=== PATIENT | male | born 1970 | race Caucasian/White ===

== ENCOUNTER 2019-08-30 09:57 | Emergency (ER) | payer BC ==
[2019-08-30] MEDS ORDERED: TETRACAINE HCL 0.5% 4ML OPTH ONE (10:38)
[2019-08-30] MEDS ORDERED: TETANUS & DIPHTHERIA TOX,ADULT 0.5 ML VIAL ONE (10:39)
[2019-08-30] MEDS ORDERED: FLUORESCEIN SODIUM 1 MG/WRAP ONE (10:39)
--- NOTE | 2019-08-30 11:14 | ER ---
Nurse's Notes [facility] Name: Georgi Roblero Age: 48 yrs Sex: Male : 1970 Arrival Date: 08/30/2019 Time: 09:59 Bed 19 Private MD: Diagnosis: Injury of conjunctiva and corneal abrasion without foreign body, left eye Presentation: 08/30 10:10 Presenting complaint: Patient states: "I feel like I scratched my eye or there is ss something in there." c/o L eye irritation x 2 days. Transition of care: patient was not received from another setting of care. Onset of symptoms was August 28, 2019. Risk Assessment: Do you want to hurt yourself or someone else? Patient reports no desire to harm self or others. Initial Sepsis Screen: Does the patient meet any 2 criteria? No. Patient's initial sepsis screen is negative. Does the patient have a suspected source of infection? No. Patient's initial sepsis screen is negative. Care prior to arrival: None. 10:10 Method Of Arrival: Ambulatory ss 10:10 Acuity: CHIARA 4 ss Historical: - Allergies: 10:07 NKDA; tw2 - Home Meds: 10:07 None [Active]; tw2 - PMHx: 10:07 None; tw2 - PSHx: 10:07 right hand; tw2 - Immunization history:: Adult Immunizations. - Coronavirus screen:: The patient has NOT traveled to [place] in the past 14 days. - Social history:: Smoking status: . - Ebola Screening: : Patient denies travel to an Ebola-affected area in the 21 days before illness onset. Screenin:02 Abuse screen: Denies threats or abuse. Nutritional screening: No deficits noted. tw2 Tuberculosis screening: No symptoms or risk factors identified. Fall Risk None identified. Assessment: 10:00 General: Appears in no apparent distress. Behavior is calm, cooperative, appropriate tw2 for age. Pain: Complains of pain in left eye. Neuro: Level of Consciousness is awake, alert, obeys commands. Cardiovascular: Patient's skin is warm and dry. Respiratory: Airway is patent Respiratory effort is even, unlabored, Respiratory pattern is regular, symmetrical. GI: No signs and/or symptoms were reported involving the gastrointestinal system. EENT: Reports pain in left eye. 10:13 Reassessment: provider at bedside at this time. tw2 11:11 Reassessment: provider at bedside at this time. tw2 11:22 Reassessment: Patient appears in no apparent distress at this time. No changes from tw2 previously documented assessment. Vital Signs: 10:09 BP 144 / 101; Pulse 78; Resp 15; Temp 97.3(TE); Pulse Ox 99% on R/A; Weight 97.52 kg; ss Height 5 ft. 11 in. (180.34 cm); Pain 2/10; 11:05 BP 119 / 89; Pulse 77; Resp 17; Pulse Ox 99% on R/A; tw2 10:09 Body Mass Index 29.99 (97.52 kg, 180.34 cm) ss Visual Acuity: 11:05 Left Eye Visual acuity 20/50, ; Right Eye Visual acuity 20/30, ; Both Eyes Visual tw2 acuity 20/30; Without Lenses; ED Course: 09:59 Patient arrived in ED. rg4 10:02 Sendy Parson RN is Primary Nurse. tw2 10:06 Arm band placed on. tw2 10:07 Bed in low position. Call light in reach. tw2 10:09 Omi De La Paz NP is PHCP. pm1 10:09 Aguilar Eubanks MD is Attending Physician. pm1 10:11 Triage completed. ss 11:22 No provider procedures requiring assistance completed. Patient did not have IV access tw2 during this emergency room visit. Administered Medications: 11:00 Drug: Tetanus-Diphtheria Toxoid Adult 0.5 ml {Pvc Monitor: [employer]. Exp: 06/13/2021. Lot #: [id number]. } Route: IM; Site: right deltoid; 11:05 Follow up: Response: No adverse reaction tw2 11:04 Drug: Tetracaine Drops 0.5 % 1 drops Route: Ophthalmic; Site: left eye; tw2 11:21 Not Given (not available from pharmacy): ERYTHromycin Ointment 1 application Ophthalmic tw2 once Outcome: 11:13 Discharge ordered by . pm1 11:22 Discharged to home ambulatory. tw2 11:22 Condition: stable 11:22 Discharge instructions given to patient, Instructed on discharge instructions, follow up and referral plans. medication usage, Demonstrated understanding of instructions, follow-up care, medications, Prescriptions given X 1. 11:23 Patient left the ED. tw2 Signatures: Cathy Uribe, RN RN ss Omi De La Paz, SPRINKLER INSPECTOR SPRINKLER INSPECTOR pm1 Sendy Parson RN RN tw2 Jayla Soto rg4
--- NOTE | 2019-08-30 11:15 | EDPHYS ---
Physician Documentation [facility] Name: Georgi Roblero Age: 48 yrs Sex: Male : 1970 Arrival Date: 08/30/2019 Time: 09:59 Bed 19 Private MD: ED Physician Aguilar Eubanks HPI: 08/30 10:36 This 48 yrs old Male presents to ER via Ambulatory with complaints of Left pm1 Eye Problem. 10:36 to the left eye, caused by possibly metal debris from his coworker who was grinding pm1 metal. Onset: The symptoms/episode began/occurred 2 day(s) ago. Duration: the symptoms pain to left eye upper left corner occasionally. Aggravated by nothing. Alleviated by redness of eye, using Visine. Associated signs and symptoms: Pertinent negatives: fever, headache. Patient does not wear contacts. Severity of symptoms: in the emergency department the symptoms are unchanged. The patient has not experienced similar symptoms in the past. It is unknown whether or not the patient has recently seen a physician. Historical: - Allergies: 10:07 NKDA; tw2 - Home Meds: 10:07 None [Active]; tw2 - PMHx: 10:07 None; tw2 - PSHx: 10:07 right hand; tw2 - Immunization history:: Adult Immunizations. - Coronavirus screen:: The patient has NOT traveled to [place] in the past 14 days. - Social history:: Smoking status: . - Ebola Screening: : Patient denies travel to an Ebola-affected area in the 21 days before illness onset. ROS: 10:36 Constitutional: Negative for fever, chills, and weight loss. pm1 10:36 ENT: Negative for injury, pain, and discharge, Cardiovascular: Negative for chest pain, palpitations, and edema, Respiratory: Negative for shortness of breath, cough, wheezing, and pleuritic chest pain. 10:36 Neuro: Negative for headache, weakness, numbness, tingling, and seizure. 10:36 Eyes: Positive for foreign body sensation, pain, redness, Negative for blurry vision, visual disturbance. 10:36 All other systems are negative. Exam: 11:15 Visual Acuity: I have reviewed the nursing documentation. pm1 11:15 Constitutional: This is a well developed, well nourished patient who is awake, alert, and in no acute distress. Head/Face: Normocephalic, atraumatic. 11:15 Eyes: Periorbital structures: appear normal, Pupils: no acute changes, Extraocular movements: no acute changes, Conjunctiva: normal, no exudate, no injection, no subconjunctival hemorrhage Corneas: abrasion, that is small, on the left, at 3 o'clock, foreign body, is not appreciated, on the left, a fluorescein strip employed to appreciate the findings, Sclera: no appreciated abnormality. Vital Signs: 10:09 BP 144 / 101; Pulse 78; Resp 15; Temp 97.3(TE); Pulse Ox 99% on R/A; Weight 97.52 kg; ss Height 5 ft. 11 in. (180.34 cm); Pain 2/10; 11:05 BP 119 / 89; Pulse 77; Resp 17; Pulse Ox 99% on R/A; tw2 10:09 Body Mass Index 29.99 (97.52 kg, 180.34 cm) Visual Acuity: 11:05 Left Eye Visual acuity 20/50, ; Right Eye Visual acuity 20/30, ; Both Eyes Visual tw2 acuity 20/30; Without Lenses; MDM: 10:10 Patient medically screened. [facility] 11:08 Data reviewed: vital signs. Data interpreted: Pulse oximetry: on room air is 99 %. pm1 Interpretation: normal. Counseling: I had a detailed discussion with the patient and/or guardian regarding: the historical points, exam findings, and any diagnostic results supporting the discharge/admit diagnosis, the need for outpatient follow up, an opthalmologist, to return to the emergency department if symptoms worsen or persist or if there are any questions or concerns that arise at home. 08/30 10:16 Order name: Visual Acuity; Complete Time: 11:03 pm1 08/30 10:16 Order name: Eye Tray; Complete Time: 10:40 pm1 08/30 10:16 Order name: Fluoresene Opth strip; Complete Time: 10:40 pm1 Administered Medications: 11:00 Drug: Tetanus-Diphtheria Toxoid Adult 0.5 ml {Ops Analyst: [employer]. Exp: tw06/13/2021. Lot #: [id number]. } Route: IM; Site: right deltoid; 11:05 Follow up: Response: No adverse reaction tw2 11:04 Drug: Tetracaine Drops 0.5 % 1 drops Route: Ophthalmic; Site: left eye; tw2 11:21 Not Given (not available from pharmacy): ERYTHromycin Ointment 1 application Ophthalmic tw2 once Disposition: 08/30/19 11:13 Discharged to Home. Impression: Injury of conjunctiva and corneal abrasion without foreign body, left eye. - Condition is Stable. - Discharge Instructions: Corneal Abrasion. - Prescriptions for Erythromycin 5 mg/gram (0.5 %) Ophthalmic Ointment - apply 1 ribbon by OPHTHALMIC route every 8 hours for 7 days; 1 tube. - Medication Reconciliation Form, Thank You Letter, Antibiotic Education, Prescription Opioid Use, Work release form form. - Follow up: Emergency Department; When: As needed; Reason: Worsening of condition. Follow up: Private Physician; When: 2 - 3 days; Reason: Recheck today's complaints, Continuance of care, Re-evaluation by your physician. - Problem is new. - Symptoms have improved. Addendum: 09/01/2019 07:52 Co-signature as Attending Physician, Aguilar Eubanks MD I agree with the assessment and c newby plan of care. Signatures: Aguilar Eubanks MD MD cha Marinas, Patrick, PHILANTHROPY OFFICER PHILANTHROPY OFFICER pm1 Sendy Parson RN RN tw2 Corrections: (The following items were deleted from the chart) 08/30 11:23 11:13 08/30/2019 11:13 Discharged to Home. Impression: Injury of conjunctiva and tw2 corneal abrasion without foreign body, left eye. Condition is Stable. Forms are Work release form, Medication Reconciliation Form, Thank You Letter, Antibiotic Education, Prescription Opioid Use. Follow up: Emergency Department; When: As needed; Reason: Worsening of condition. Follow up: Private Physician; When: 2 - 3 days; Reason: Recheck today's complaints, Continuance of care, Re-evaluation by your physician. Problem is new. Symptoms have improved. pm1
[2019-08-30 11:31] VITALS: O2SAT 99
[2019-08-30 11:34] VITALS: BP 119/89
[2019-08-30 11:41] VITALS: TEMP 97.8
== END 2019-08-30 11:23 | disposition home or self-care (01) ==
LOC: ER 09:57
DX: S05.02XA Injury of conjunctiva and corneal abrasion without foreign body, left eye, initial encounter (principal); X58.XXXA Exposure to other specified factors, initial encounter; Y93.89 Activity, other specified; Y92.89 Other specified places as the place of occurrence of the external cause; Y99.0 Civilian activity done for income or pay; Z23 Encounter for immunization
CPT/HCPCS: 90471; 90714; 99283

== ENCOUNTER 2020-05-08 02:16 | Emergency (ER) | payer BC ==
--- OUTSIDE RECORDS SUMMARY | 2020-05-08 02:18 | XMS REPORT | Summary of Care ---
:1970 Author Organization [facility] Address [address] [place] [id number] Care Team Providers Name Role Phone Unavailable Primary Care Provider Unavailable Encounter Details Date Type Department Care Team Description 01/30/2020 Letter (Out) [facility] Family Medicine - Lab, Pcp Co tomasa Cedeno [address] [place] [address] [place] [address] Allergies Not on Filedocumented as of this encounter (statuses as of 02/09/2020) Medications Not on filedocumented as of this encounter (statuses as of 02/09/2020) Active Problems Not on filedocumented as of this encounter (statuses as of 02/09/2020) Social History Tobacco Use Types Packs/Day Years Used Date Never Assessed Sex Assigned at Date Recorded Not on file Job Start Date Occupation Industry Not on file Not on file Not on file Travel History Travel Start Travel End No recent travel history available. documented as of this encounter Last Filed Vital Signs Not on filedocumented in this encounter Plan of Treatment Health Maintenance Due Date Last Done Comments DTaP,Tdap,and Td Vaccines (1 - 11/27/1979 Tdap) Depression Screening 1980 COLONOSCOPY 2018 Zoster Recombinant Vaccine 2018 (SHINGRIX) (1 of 2) INFLUENZA VACCINE (#1) 2020 PNEUMOCOCCAL 0-64 YEARS COMBINED Aged Out No longer eligible based on SERIES patient's age to complete this topic documented as of this encounter Results Not on filedocumented in this encounter Additional Health Concerns Infection Onset Date Last Indicated Resolved Time COVID-19 Confirmed 01/28/2020 01/28/2020 documented as of this encounter Insurance Payer Benefit Plan Subscriber ID Effective Dates Phone Address Type / Group [employer] [place] [id number] 2018-Ag [phone] [address] PPO/POS [place] - OUT OF t [id number] [place] [address] documented as of this encounter
--- OUTSIDE RECORDS SUMMARY | 2020-05-08 02:18 | XMS REPORT | Continuity of Care Document ---
:1970 Author Organization [facility] t Address [address] [place] [address] Care Team Providers Name Role Phone Garry Hall MD Attending Clinician Lab, Melissa Attending Clinician Unavailable Problems This patient has no known problems. Allergies, Adverse Reactions, Alerts This patient has no known allergies or adverse reactions. Medications This patient has no known medications. Procedures This patient has no known procedures. Encounters Start End Encounter Admission Attending Care Care Encounter Source Date/Time Date/Time Type Type Clinicians Facility Department ID 2020-01-30 2020-01-30 Telephone SONIDO Hall [id number] 00:00:00 00:00:00 Garry SINGH [id number] [facility] [id number] 2020-01-30 2020-01-30 Letter Lab, Pcp [facility] [id number] 00:00:00 00:00:00 (Out) [facility] [id number] [facility] [id number] [facility] [phone] [address] Results This patient has no known results.
[2020-05-08] MEDS ORDERED: FLUORESCEIN SODIUM 1 MG/WRAP ONE (02:46)
[2020-05-08] MEDS ORDERED: TETRACAINE HCL 0.5% 4ML OPTH ONE (02:46)
--- NOTE | 2020-05-08 03:33 | ER ---
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 Coronavirus screen: Client denies travel out of the [place] in the last 14 days. At this time, the client does not indicate any symptoms associated with coronavirus-19. Ebola Screen: Patient negative for fever greater than or equal to 101.5 degrees Fahrenheit, and additional compatible Ebola Virus Disease symptoms Patient denies exposure to infectious person. Patient denies travel to an Ebola-affected area in the 21 days before illness onset. No symptoms or risks identified at this time. Initial Sepsis Screen: Does the patient meet any 2 criteria? No. Patient's initial sepsis screen is negative. Does the patient have a suspected source of infection? No. Patient's initial sepsis screen is negative. Risk Assessment: Do you want to hurt yourself or someone else? Patient reports no desire to harm self or others. Onset of symptoms was May 08, 2020. Care prior to arrival: None. Mechanism of Injury: No Mechanism of Injury. Transition of care: patient was not received from another setting of care. 02:34 Method Of Arrival: Ambulatory sg 02:34 Acuity: CHIARA 4 sg Historical: - Allergies: 02:37 NKDA; sg - Home Meds: 02:37 None [Active]; sg - PMHx: 02:37 None; sg - PSHx: 02:37 right hand; left eye (mesh work); sg - Immunization history:: Adult Immunizations up to date. - Social history:: Smoking status: Patient denies any tobacco usage or history of. - Family history:: not pertinent. Screenin:45 Abuse screen: Denies threats or abuse. Denies injuries from another. Nutritional wh screening: No deficits noted. Tuberculosis screening: No symptoms or risk factors identified. Fall Risk None identified. Assessment: 02:45 General: Appears in no apparent distress. Behavior is calm, cooperative, appropriate for age. Pain: Complains of pain in left eye. Neuro: Level of Consciousness is awake, alert, obeys commands, Oriented to person, place, time, situation, Appropriate for age. Cardiovascular: Capillary refill < 3 seconds. Respiratory: Airway is patent Respiratory effort is even, unlabored, Respiratory pattern is regular, symmetrical. GI: Abdomen is flat, non-distended. : No signs and/or symptoms were reported regarding the genitourinary system. EENT: Eyes clear. Derm: Skin is intact, is healthy with good turgor, Skin is pink, warm \T\ dry. normal. Musculoskeletal: Circulation, motion, and sensation intact. 03:45 Reassessment: Patient appears in no apparent distress at this time. No changes from previously documented assessment. Patient and/or family updated on plan of care and expected duration. Pain level reassessed. Patient is alert, oriented x 3, equal unlabored respirations, skin warm/dry/pink. Vital Signs: 02:34 BP 164 / 72; Pulse 87; Resp 18 S; Temp 98.2; Pulse Ox 100% on R/A; Weight 99.79 kg; Height 5 ft. 10 in. (177.80 cm); Pain 4/10; 03:30 BP 143 / 94; Pulse 66; Resp 18; Pulse Ox 98% on R/A; wh 02:34 Body Mass Index 31.57 (99.79 kg, 177.80 cm) ED Course: 02:17 Patient arrived in ED. ag3 02:29 gAuilar Eubanks MD is Attending Physician. myesha 02:34 Arm band placed on. sg 02:35 Luis F Gurrola is Primary Nurse. 02:36 Triage completed. 02:45 Patient has correct armband on for positive identification. Bed in low position. Call light in reach. Side rails up X 1. Pulse ox on. NIBP on. 03:05 Assist provider with eye exam of left eye. using fluorescein stain, Performed by Aguilar Eubanks MD Patient tolerated well. Patient did not have IV access during this emergency room visit. 03:30 Iraj Guerra MD is Referral Physician. myesha Administered Medications: 03:31 Not Given (Physician Discretion): Garamycin Ointment 0.3 % 0.5 inches Ophthalmic once; Left Eye 03:53 Drug: ERYTHromycin Ointment 1 application Route: Ophthalmic; Site: left eye; 03:58 Follow up: Response: No adverse reaction 03:53 Drug: Donora (7.5 mg-325 mg) 1 tabs Route: PO; 03:58 Follow up: Response: No adverse reaction; Pain is decreased; RASS: Alert and Calm (0) Outcome: 03:32 Discharge ordered by MD. brunner 03:55 Discharged to home ambulatory. 03:55 Condition: stable 03:55 Discharge instructions given to patient, Instructed on discharge instructions, follow up and referral plans. POC Demonstrated understanding of instructions, follow-up care, POC 03:59 Patient left the ED. Signatures: Neptali Mascorro, JOSEPH RN Aguilar Perez MD MD cha Habalo, Luis F Natalia Vanegas ag3
--- NOTE | 2020-05-08 03:33 | EDPHYS ---
[facility] Name: Georgi Roblero Age: 49 yrs Sex: Male : 1970 Arrival Date: 05/08/2020 Time: 02:17 Bed 18 Private MD: ED Physician Aguilar Eubanks HPI: 05/08 03:21 This 49 yrs old Male presents to ER via Ambulatory with complaints of Eye myesha Problem. 03:21 The patient sustained a scratch, to the left eye. Onset: The symptoms/episode myesha began/occurred 2 day(s) ago. Duration: the symptoms are continuous. Aggravated by blinking, closing eye, Alleviated by covering eye, lying down. Associated signs and symptoms: Pertinent positives: headache. Patient wears glasses. Severity of symptoms: At their worst the symptoms were mild in the emergency department the symptoms are unchanged. The patient has not experienced similar symptoms in the past. Historical: - Allergies: 02:37 NKDA; sg - Home Meds: 02:37 None [Active]; sg - PMHx: 02:37 None; sg - PSHx: 02:37 right hand; left eye (mesh work); sg - Immunization history:: Adult Immunizations up to date. - Social history:: Smoking status: Patient denies any tobacco usage or history of. - Family history:: not pertinent. ROS: 03:21 Constitutional: Negative for fever, chills, and weight loss, ENT: Negative for injury, myesha pain, and discharge, Neck: Negative for injury, pain, and swelling, Cardiovascular: Negative for chest pain, palpitations, and edema, Respiratory: Negative for shortness of breath, cough, wheezing, and pleuritic chest pain, Abdomen/GI: Negative for abdominal pain, nausea, vomiting, diarrhea, and constipation, Back: Negative for injury and pain, : Negative for injury, bleeding, discharge, and swelling, MS/Extremity: Negative for injury and deformity, Skin: Negative for injury, rash, and discoloration, Neuro: Negative for headache, weakness, numbness, tingling, and seizure, Psych: Negative for depression, anxiety, suicide ideation, homicidal ideation, and hallucinations, Allergy/Immunology: Negative for hives, rash, and allergies, Endocrine: Negative for neck swelling, polydipsia, polyuria, polyphagia, and marked weight changes, Hematologic/Lymphatic: Negative for swollen nodes, abnormal bleeding, and unusual bruising. 03:21 Eyes: Positive for pain, redness, vision loss. Exam: 03:21 Constitutional: This is a well developed, well nourished patient who is awake, alert, myesha and in no acute distress. Head/Face: Normocephalic, atraumatic. ENT: Nares patent. No nasal discharge, no septal abnormalities noted. Tympanic membranes are normal and external auditory canals are clear. Oropharynx with no redness, swelling, or masses, exudates, or evidence of obstruction, uvula midline. Mucous membranes moist. Neck: Trachea midline, no thyromegaly or masses palpated, and no cervical lymphadenopathy. Supple, full range of motion without nuchal rigidity, or vertebral point tenderness. No Meningismus. Chest/axilla: Normal chest wall appearance and motion. Nontender with no deformity. No lesions are appreciated. Cardiovascular: Regular rate and rhythm with a normal S1 and S2. No gallops, murmurs, or rubs. Normal PMI, no JVD. No pulse deficits. Respiratory: Lungs have equal breath sounds bilaterally, clear to auscultation and percussion. No rales, rhonchi or wheezes noted. No increased work of breathing, no retractions or nasal flaring. Abdomen/GI: Soft, non-tender, with normal bowel sounds. No distension or tympany. No guarding or rebound. No evidence of tenderness throughout. Back: No spinal tenderness. No costovertebral tenderness. Full range of motion. Male : Normal genitalia with no discharge or lesions. Skin: Warm, dry with normal turgor. Normal color with no rashes, no lesions, and no evidence of cellulitis. MS/ Extremity: Pulses equal, no cyanosis. Neurovascular intact. Full, normal range of motion. Neuro: Awake and alert, GCS 15, oriented to person, place, time, and situation. Cranial nerves II-XII grossly intact. Motor strength 5/5 in all extremities. Sensory grossly intact. Cerebellar exam normal. Normal gait. Psych: Awake, alert, with orientation to person, place and time. Behavior, mood, and affect are within normal limits. 03:21 Eyes: Periorbital structures: appear normal, Pupils: equal, round, and reactive to light and accomodation, Extraocular movements: no acute changes, Conjunctiva: normal, Corneas: abrasion, that is small, on the left, at 3 o'clock, Sclera: no appreciated abnormality, Anterior chamber: normal, Lids and lashes: appear normal, funduscopic exam reveals no obvious abnormalities, Visual prado: are intact, Nystagmus: is not appreciated, Intraocular pressure: left eye = 29mmHg, 29/31. Vital Signs: 02:34 BP 164 / 72; Pulse 87; Resp 18 S; Temp 98.2; Pulse Ox 100% on R/A; Weight 99.79 kg; sg Height 5 ft. 10 in. (177.80 cm); Pain 4/10; 03:30 BP 143 / 94; Pulse 66; Resp 18; Pulse Ox 98% on R/A; wh 02:34 Body Mass Index 31.57 (99.79 kg, 177.80 cm) sg MDM: 02:29 Patient medically screened. [facility] 03:27 Differential diagnosis: Corneal abrasion of Corneal ulcer of Foreign body in Acute myesha iritis of Acute glaucoma in Data reviewed: vital signs, nurses notes. Data interpreted: campus monitor: rate is 87 beats/min, rhythm is regular. Counseling: I had a detailed discussion with the patient and/or guardian regarding: the historical points, exam findings, and any diagnostic results supporting the discharge/admit diagnosis, the need for outpatient follow up, for definitive care, an opthalmologist. Physician consultation: Iraj Guerra MD was called at 03:30, and will see patient in office, shortly, later today. 05/08 03:21 Order name: Eye Tray; Complete Time: 03:22 [facility] Administered Medications: 03:31 Not Given (Physician Discretion): Garamycin Ointment 0.3 % 0.5 inches Ophthalmic once; Left Eye 03:53 Drug: ERYTHromycin Ointment 1 application Route: Ophthalmic; Site: left eye; 03:58 Follow up: Response: No adverse reaction 03:53 Drug: Snow (7.5 mg-325 mg) 1 tabs Route: PO; 03:58 Follow up: Response: No adverse reaction; Pain is decreased; RASS: Alert and Calm (0) Disposition: 05/08/20 03:32 Discharged to Home. Impression: Glaucoma in diseases classified elsewhere, Other secondary cataract, left eye, Injury of conjunctiva and corneal abrasion without foreign body. - Condition is Fair. - Discharge Instructions: Corneal Abrasion, How to Use Eye Drops and Eye Ointments, Glaucoma, Corneal Abrasion, Lejb-bf-Gait, Glaucoma, [id number]. - Medication Reconciliation Form, Thank You Letter, Antibiotic Education, Prescription Opioid Use form. - Follow up: Iraj Guerra MD; When: Today; Reason: Recheck today's complaints, Continuance of care, Re-evaluation by your physician. - Problem is new. - Symptoms have improved. Signatures: Neptali Mascorro, RN RN Aguilar Perez MD MD cha Habalo, Winsy Corrections: (The following items were deleted from the chart) 03:59 03:32 05/08/2020 03:32 Discharged to Home. Impression: Glaucoma in diseases classified wh elsewhere; Other secondary cataract, left eye; Injury of conjunctiva and corneal abrasion without foreign body. Condition is Fair. Forms are Medication Reconciliation Form, Thank You Letter, Antibiotic Education, Prescription Opioid Use. Follow up: Iraj Guerra; When: Today; Reason: Recheck today's complaints, Continuance of care, Re-evaluation by your physician. Problem is new. Symptoms have improved. myesha
[2020-05-08] MEDS ORDERED: GENTAMICIN 0.3% OPTH DROP 5ML ONE (03:40)
[2020-05-08] MEDS ORDERED: ERYTHROMYCIN 1 APPL/1 GM TUBE ONE (03:51)
[2020-05-08] MEDS ORDERED: HYDROCODONE/APAP 7.5/325 MG TAB ONE (04:04)
[2020-05-08 04:15] VITALS: TEMP 98.2
[2020-05-08 04:16] VITALS: BP 143/94; O2SAT 98
== END 2020-05-08 03:59 | disposition home or self-care (01) ==
LOC: ER 02:16
DX: S05.02XA Injury of conjunctiva and corneal abrasion without foreign body, left eye, initial encounter (principal); H26.492 Other secondary cataract, left eye; H40.9 Unspecified glaucoma; X58.XXXA Exposure to other specified factors, initial encounter; Y93.89 Activity, other specified; Y92.89 Other specified places as the place of occurrence of the external cause
CPT/HCPCS: 99283

== ENCOUNTER 2020-11-11 10:20 | Emergency (ER) | payer BC ==
--- OUTSIDE RECORDS SUMMARY | 2020-11-11 10:23 | XMS REPORT | Continuity of Care Document ---
:1970 Author Organization [facility] t Address [address] [place] [address] Care Team Providers Name Role Phone Isabel HERZOG, H Attending Clinician Lab, Melissa Attending Clinician Unavailable [...] Department ID 2020-01-30 2020-01-30 Telephone [facility] [id number] 00:00:00 00:00:00 Garry SINGH [id number] [facility] [id number] 2020-01-30 2020-01-30 Letter Lab, Pcp [facility] [id number] 00:00:00 00:00:00 (Out) [facility] [id number] [place] [id number] [facility] [phone] [address] One Results This patient has no known results.
--- NOTE | 2020-11-11 11:13 | RAD REPORT ---
EXAM DESCRIPTION: CT - Stone Protocol - 11/11/2020 11:04 am CLINICAL HISTORY: Flank pain. FLANK PAIN COMPARISON: No comparisons TECHNIQUE: Axial images were obtained without oral or IV contrast. Lack of contrast limits solid org an and vascular assessment. The [id number] spans the entirety of the system partially obscuring uppermost abdomen and lung bases. Coronal reformatted images were obtained and reviewed. All CT scans are performed using dose optimization technique as appropriate and may include automated exposure control or mA/KV adjustment according to patient size. FINDINGS: The lower lung prado are clear. Imaged portions of the liver and spleen show no suspicious findings on non-contrast imaging. The panc reas and adrenal glands are normal. No pathologic lymphadenopathy in the abdomen or pelvis. No urinary tract stones or obstructive uropathy. No bowel obstruction, free air, free fluid or abscess. Normal appendix noted. Sigmoid diverticulosis without diverticulitis. Mild lumbar degenerative changes are seen. IMPRESSION: No urinary tract stones or obstructive uropathy.
[2020-11-11 11:28] LABS: Urine Blood Negative (Negative); Urine Glucose Negative (Negative); Urine Protein Negative (Negative)
--- NOTE | 2020-11-11 11:39 | EDPHYS ---
Physician Documentation [facility] Name: Georgi Roblero Age: 49 yrs Sex: Male : 1970 Arrival Date: 11/11/2020 Time: 10:23 Bed 7 Private MD: ED Physician Tuan Zaman HPI: 11/11 11:36 This 49 yrs old Male presents to ER via Ambulatory with complaints of Low kb Back Pain. 11:36 The patient presents with pain that is acute. The symptoms are located in the right kb flank and right low back. The pain does not radiate. The problem was sustained from unknown cause. Onset: The symptoms/episode began/occurred 2 week(s) ago. Modifying factors: The patient symptoms are alleviated by nothing, the patient symptoms are aggravated by any movement. Associated signs and symptoms: The patient has no apparent associated signs or symptoms. Severity of symptoms: At their worst the symptoms were moderate, in the emergency department the symptoms are unchanged. The patient has not experienced similar symptoms in the past. The patient has not recently seen a physician. Pt reports right low back/flank pain for 2 weeks. States it had been intermittent and today has been constant. Denies fever, urinary symptoms. States he lifted something heavy a month ago, but isn't sure if that caused it. . Historical: - Allergies: 10: NKDA; tw2 - Home Meds: 10: None [Active]; tw2 - PMHx: 10: Kidney stones; tw2 - PSHx: 10:29 right hand; left eye (mesh work); tw2 - Immunization history:: Adult Immunizations. - Social history:: Smoking status: . ROS: 11:27 Constitutional: Negative for fever, chills, and weight loss, Respiratory: Negative for kb shortness of breath, cough, wheezing, and pleuritic chest pain, Abdomen/GI: Negative for abdominal pain, nausea, vomiting, diarrhea, and constipation, MS/Extremity: Negative for injury and deformity, Skin: Negative for injury, rash, and discoloration, Neuro: Negative for headache, weakness, numbness, tingling, and seizure. 11:27 Back: Positive for pain at rest, pain with movement, flank pain, of the right flank. Exam: 11:33 Constitutional: This is a well developed, well nourished patient who is awake, alert, kb and in no acute distress. Head/Face: Normocephalic, atraumatic. Respiratory: Respirations even and unlabored. No increased work of breathing, no retractions or nasal flaring. Skin: Warm, dry with normal turgor. Normal color. MS/ Extremity: Pulses equal, no cyanosis. Neurovascular intact. Full, normal range of motion. Neuro: Awake and alert, GCS 15, oriented to person, place, time, and situation. Moves all extremities. Normal gait. 11:33 Back: pain, that is mild, that is moderate, of the right low back, ROM is normal, normal spinal alignment noted, CVA tenderness, that is mild, is noted on the right, vertebral tenderness, is not appreciated. Vital Signs: 10:26 Pulse 79; Resp 17; Temp 97.9(TE); Pulse Ox 98% ; Weight 96.16 kg (R); Height 5 ft. 11 tw2 in. (180.34 cm); Pain 5/10; 10:30 BP 131 / 83; tw2 10:26 Body Mass Index 29.57 (96.16 kg, 180.34 cm) tw2 MDM: 10:31 Patient medically screened. kb 11:27 Data reviewed: vital signs, nurses notes. Data interpreted: Pulse oximetry: on room air kb is 98 %. Interpretation: normal. Counseling: I had a detailed discussion with the patient and/or guardian regarding: the historical points, exam findings, and any diagnostic results supporting the discharge/admit diagnosis, lab results, radiology results, the need for outpatient follow up, a family practitioner, to return to the emergency department if symptoms worsen or persist or if there are any questions or concerns that arise at home. 11/11 11:28 Order name: Urine Dipstick-Ancillary; Complete Time: 11:33 EDMS 11/11 10:55 Order name: CT Stone Protocol; Complete Time: 11:15 kb 11/11 10:55 Order name: Urine Dipstick-Ancillary (obtain specimen); Complete Time: 11:30 kb Administered Medications: 11:45 Drug: TORadol (ketorolac) 30 mg Route: IM; Site: right deltoid; sv 12:05 Follow up: Response: No adverse reaction sv Disposition: 14:25 Co-signature as Attending Physician, Tuan Zaman MD I agree with the assessment and kdr plan of care. Disposition: 11/11/20 11:38 Discharged to Home. Impression: Low back pain. - Condition is Stable. - Discharge Instructions: Musculoskeletal Pain. - Prescriptions for Cyclobenzaprine 10 mg Oral Tablet - take 1 tablet by ORAL route every 8 hours As needed; 21 tablet. Diclofenac Sodium 75 mg Oral Tablet Sustained Release - take 1 tablet by ORAL route 2 times per day; 30 tablet. - Medication Reconciliation Form, Thank You Letter, Antibiotic Education, Prescription Opioid Use, Work release form form. - Follow up: Emergency Department; When: As needed; Reason: Worsening of condition. Follow up: Private Physician; When: 2 - 3 days; Reason: Recheck today's complaints, Continuance of care, Re-evaluation by your physician. Signatures: Dispatcher [employer] EDMS Nitza Ferguson, FELIPE-C PLANT TECHNICAL SPECIALIST-[place] Landa, RN RN Tuan Huff MD MD kdr Sendy Parson RN RN tw2 Corrections: (The following items were deleted from the chart) 12:06 11:38 11/11/2020 11:38 Discharged to Home. Impression: Low back pain. Condition is sv Stable. Forms are Medication Reconciliation Form, Thank You Letter, Antibiotic Education, Prescription Opioid Use. Follow up: Emergency Department; When: As needed; Reason: Worsening of condition. Follow up: Private Physician; When: 2 - 3 days; Reason: Recheck today's complaints, Continuance of care, Re-evaluation by your physician. kb
--- NOTE | 2020-11-11 11:39 | ER ---
Nurse's Notes [facility] Name: Georgi Roblero Age: 49 yrs Sex: Male : 1970 Arrival Date: 11/11/2020 Time: 10:23 Bed 7 Private MD: Diagnosis: Low back pain Presentation: 11/11 10:26 Chief complaint: Patient states: i lifted a gocart about a month ago, but i had kidney tw2 stones too, but it feels like my legs and my back were got feeling like they had fever, and i dont have fever, and i am in constant pain and my kidneys start hurting , more on the right but i cant stretch my left out, it feels like kidneys stone because the pain is always there. Coronavirus screen: At this time, the client does not indicate any symptoms associated with coronavirus-19. Ebola Screen: Patient denies travel to an Ebola-affected area in the 21 days before illness onset. Initial Sepsis Screen: Does the patient meet any 2 criteria? No. Patient's initial sepsis screen is negative. Does the patient have a suspected source of infection? No. Patient's initial sepsis screen is negative. Risk Assessment: Do you want to hurt yourself or someone else? Patient reports no desire to harm self or others. Onset of symptoms. 10:26 Method Of Arrival: Ambulatory tw2 10:26 Acuity: CHIARA 3 tw2 Triage Assessment: 10:29 General: Appears in no apparent distress. well groomed, Behavior is calm, cooperative, tw2 appropriate for age. Pain: Complains of pain in back. : Denies burning with urination. Musculoskeletal: Reports pain in B/L flank pain. Historical: - Allergies: 10: NKDA; tw2 - Home Meds: 10: None [Active]; tw2 - PMHx: 10: Kidney stones; tw2 - PSHx: 10:29 right hand; left eye (mesh work); tw2 - Immunization history:: Adult Immunizations. - Social history:: Smoking status: . Screenin:31 Abuse screen: Denies threats or abuse. Denies injuries from another. Nutritional hb screening: No deficits noted. Tuberculosis screening: No symptoms or risk factors identified. Fall Risk None identified. Assessment: 11:20 General: Appears in no apparent distress. Behavior is calm, cooperative. Pain: Pain hb currently is 5 out of 10 on a pain scale. Neuro: Level of Consciousness is awake, alert, obeys commands, Oriented to person, place, time, situation. Cardiovascular: Patient's skin is warm and dry. Respiratory: Respiratory effort is even, unlabored, Respiratory pattern is regular, symmetrical. GI: No signs and/or symptoms were reported involving the gastrointestinal system. : No signs and/or symptoms were reported regarding the genitourinary system. EENT: No signs and/or symptoms were reported regarding the EENT system. Derm: Skin is pink, warm \T\ dry. Musculoskeletal: Reports back pain, constant. 11:47 Reassessment: Pt up for discharge, waiting for IM shot time and then will be discharged.sv Vital Signs: 10:26 Pulse 79; Resp 17; Temp 97.9(TE); Pulse Ox 98% ; Weight 96.16 kg (R); Height 5 ft. 11 tw2 in. (180.34 cm); Pain 5/10; 10:30 BP 131 / 83; tw2 10:26 Body Mass Index 29.57 (96.16 kg, 180.34 cm) tw2 ED Course: 10:23 Patient arrived in ED. ds1 10:28 Triage completed. tw2 10:30 Arm band placed on. tw2 10:31 Nitza Ferguson FNP-C is [facility]. kb 10:31 Tuan Zaman MD is Attending Physician. kb 11:02 CT Stone Protocol In Process Unspecified. EDMS 11:30 Dania Pierce, RN is Primary Nurse. hb 11:31 Patient has correct armband on for positive identification. Bed in low position. Side hb rails up X 1. 12:05 No provider procedures requiring assistance completed. Patient did not have IV access sv during this emergency room visit. Administered Medications: 11:45 Drug: TORadol (ketorolac) 30 mg Route: IM; Site: right deltoid; sv 12:05 Follow up: Response: No adverse reaction sv Outcome: 11:38 Discharge ordered by . kb 12:05 Discharged to home ambulatory. sv 12:05 Condition: stable 12:05 Discharge instructions given to patient, Instructed on discharge instructions, follow up and referral plans. medication usage, Demonstrated understanding of instructions, follow-up care, medications, Prescriptions given X 2. 12:06 Patient left the ED. sv Signatures: Dispatcher [employer] EDMS Nitza Ferguson, PAMELA BUSTAMANTEP-[place] Landa, RN RN Tiffanie Gardner ds1 Dania Pierce, RN RN Sendy Parson RN RN tw2
[2020-11-11] MEDS ORDERED: KETOROLAC 30 MG/ML INJ ONE (12:02)
[2020-11-11 12:11] VITALS: TEMP 97.9; O2SAT 98
[2020-11-11 12:12] VITALS: BP 131/83
== END 2020-11-11 12:06 | disposition home or self-care (01) ==
LOC: ER 10:20
DX: M54.5 Low back pain (principal)
CPT/HCPCS: 74176; 76377; 81003; 96372; 99283

== ENCOUNTER 2021-03-11 09:15 | Day surgery (SDC) | payer BC ==
[2021-03-11] MEDS ORDERED: Ringers Lactate 1,000 ML IV ONE (09:54)
[2021-03-11] MEDS ORDERED: propofoL 200 MG/20 ML VIAL IV ONE (11:19)
[2021-03-11] MEDS ORDERED: LIDOCAINE 1% MPF 30 ML VIAL ONE (11:19)
--- NOTE | 2021-03-11 11:43 | ENDO RPT ---
[address], [address] COLONOSCOPY PROCEDURE REPORT EXAM DATE: 03/11/2021 PATIENT NAME: Georgi Roblero MR #: [id number] BIRTHDATE: 1970 ATTENDING: Willard Islas DR STATUS: outpatient DENTAL HYGIENE PROFESSOR: Mariela May RN and Magda Watkins CST INDICATIONS: The patient is a 50 yr old Male here for a colonoscopy due to colon cancer screening PROCEDURE PERFORMED: Screening Colonoscopy and Colonoscopy MEDICATIONS: Per Anesthesia. ESTIMATED BLOOD LOSS: None CONSENT: The patient understands the risks and benefits of the procedure and understands that these risks include, but are not limited to: sedation, allergic reaction, infection, perforation and/or bleeding. Alternative means of evaluation and treatment include, among others: physical exam, x-rays, and/or surgical intervention. The patient elects to proceed with this endoscopic procedure. DESCRIPTION OF PROCEDURE: During intra-op preparation period all mechanical medical equipment was checked for proper function. Hand hygiene and appropriate measures for infection prevention was taken. Procedure, possible complications, alternatives including, but not limited to possibility of bleeding, perforation, tear, infection, sepsis, need for surgery, need for blood transfusion, were explained to the patient. After the risks, benefits and alternatives of the procedure were thoroughly explained, Informed consent was verified, confirmed and timeout was successfully executed by the treatment team. The patient was placed in the left lateral position. A digital rectal exam was performed and revealed an enlarged prostate and A digital rectal exam was performed and revealed internal hemorrhoids. After appropriate level of anesthesia, the scope was passed. The [id number] ([id number]) endoscope was introduced through the anus and advanced to the cecum, which was identified by both the appendix and ileocecal valve. The quality of the prep was fair. The instrument was then slowly withdrawn as the colon was fully examined. Scope withdrawal time was 10 minutes. COLON FINDINGS: A normal appearing cecum, ileocecal valve, and appendiceal orifice were identified. the ascending, transverse, descending, sigmoid colon, and rectum appeared unremarkable. Small internal hemorrhoids were found. Retroflexed views revealed no abnormalities. The scope was then completely withdrawn from the patient and the procedure terminated. ADVERSE EVENTS: There were no complications. IMPRESSIONS: 1. A normal appearing cecum, ileocecal valve, and appendiceal orifice were identified. the ascending, transverse, descending, sigmoid colon, and rectum appeared unremarkable 2. Small internal hemorrhoids RECOMMENDATIONS: RECALL: Willard Islas DR eSigned: Willard Islas DR 03/11/2021 11:43 AM cc: CPT CODES: ICD9 CODES: PATIENT NAME: AnnikaGeorgi prieto MR#: [id number]
[2021-03-11 13:41] VITALS: TEMP 96.9
[2021-03-11 13:42] VITALS: BP 87/59; O2SAT 97
== END 2021-03-11 12:20 | disposition home or self-care (01) ==
LOC: OR 09:15
PROVIDERS: ATTEND Surgery
PROC: 0DJD8ZZ Inspection of Lower Intestinal Tract, Via Natural or Artificial Opening Endoscopic (ICD-10-PCS; principal; 2021-03-11 10:45)
DX: Z12.11 Encounter for screening for malignant neoplasm of colon (principal); K64.8 Other hemorrhoids; N40.0 Benign prostatic hyperplasia without lower urinary tract symptoms; Z20.822 Contact with and (suspected) exposure to COVID-19
CPT/HCPCS: 45378; U0003; J2704; J7120